=== PATIENT | male | born 1940 | race Caucasian/White ===

== ENCOUNTER → 2021-08-22 | Outpatient (CLI) | payer MEDICARE, BC ==
--- NOTE | 2021-08-22 16:01 | XR ---
EXAMINATION TYPE: XR knee complete 3 views RT, XR Hip Bilateral 2 views each side Complete DATE OF EXAM: 08/22/2021 COMPARISON: NONE HISTORY: 80-year-old male [id number] FINDINGS: Right knee: Mild anterior soft tissue swelling. Minimal marginal spurring at the patellofemoral compartment and m ore mild to moderate at the medial and lateral compartments. There appears to be underlying subchondr al bony irregularity along the lateral femoral condyle articular surface. Meniscal chondrocalcinosis. Bilateral hips: Mild marginal spurring of both hips. Degenerative disc disease lower lumbar spine. Pelvic phlebolith. No acute fracture, subluxation, or dislocation. IMPRESSION: 1. Right knee: Prominent irregularity of the articular bone of the lateral femoral condyle. A posttra umatic etiology or subchondral insufficiency fracture are not excluded at this time. Recommend MRI fo r further evaluation. At least mild tricompartmental osteoarthrosis. 2. Bilateral hips: Mild degenerative spurring at the hips. Degenerative disc disease L5-S1. No acute osseous abnormality seen.
== END | disposition home or self-care (01) ==
LOC: RADXRMAIN 12:42
PROVIDERS: ATTEND Pediatrics
DX: M25.752 Osteophyte, left hip (principal); M25.751 Osteophyte, right hip; M17.11 Unilateral primary osteoarthritis, right knee; M51.37 Other intervertebral disc degeneration, lumbosacral region
CPT/HCPCS: 73521

== ENCOUNTER → 2022-02-07 | Outpatient (CLI) | payer MEDICARE, BC ==
--- NOTE | 2022-02-08 07:51 | XR ---
EXAMINATION TYPE: XR ribs bilateral, XR chest 2V DATE OF EXAM: 02/07/2022 5:54 PM INDICATION: Patient age:Male; 81 years old; Reason for study: J18.9,W19.XXXA; COMPARISON: Chest radiograph same day TECHNIQUE: Frontal and oblique views of the bilateral ribs with frontal chest radiograph. Frontal and lateral views of the chest. FINDINGS: The ribs have a normal appearance. No evidence of fracture. Overall, the lungs are clear. The cardiac silhouette is normal in size. The remaining osseous structures are intact. Lungs/Pleura: There is no evidence of pleural effusion, focal consolidation, or pneumothorax. Pulmonary vascularity: Unremarkable. Heart/mediastinum: Cardiomediastinal silhouette is unremarkable. Musculoskeletal: Degenerative changes of the shoulder joints. IMPRESSION: No acute cardiopulmonary disease/process. No acute osseous pathology.
== END | disposition home or self-care (01) ==
LOC: RADXRMAIN 17:20
PROVIDERS: ATTEND Pediatrics
DX: J18.9 Pneumonia, unspecified organism (principal); W19.XXXA Unspecified fall, initial encounter
CPT/HCPCS: 71046; 71110

== ENCOUNTER → 2023-09-21 | Outpatient (CLI) | payer MEDICARE, BC ==
--- NOTE | 2023-09-21 09:48 | XR ---
EXAMINATION TYPE: XR knee complete bilateral DATE OF EXAM: 09/21/2023 COMPARISON: None HISTORY: Bilateral knee pain TECHNIQUE: 3 view bilateral knees FINDINGS: Mild narrowing of the medial lateral compartment joint space of the left knee is present. N o acute fractures or dislocations evident. No joint effusion is evident. There is mild narrowing of the medial lateral compartment right knee. No acute fractures or dislocati ons evident. Some meniscal calcification may be present. No joint effusion is evident. IMPRESSION: 1. Mild osteoarthritic degenerative changes of the medial and lateral compartments bilateral knees. 2. Some calcification of menisci, greater on right, is present.
--- NOTE | 2023-09-21 09:53 | US ---
EXAMINATION TYPE: US abdomen complete DATE OF EXAM: 09/21/2023 COMPARISON: NONE CLINICAL INDICATION: Male, 82 years old with history of R10.9,R10.31,R10.32 UNSPECIFIED PAIN; abd drew n TECHNIQUE: Multiple sonographic images of the abdomen are obtained. 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 Left Kidney: several large mobile cysts, largest measures 10.9x11.0x8.5cm Upper IVC: wnl Abd Aorta: wnl exam limited by bowel gas . IMPRESSION: 1. Bilateral renal cysts. 2. Hepatomegaly
--- NOTE | 2023-09-21 09:54 | US ---
EXAMINATION TYPE: US groin BILAT DATE OF EXAM: 09/21/2023 COMPARISON: NONE CLINICAL INDICATION: Male, 82 years old with history of R10.9,R10.31,R10.32 UNSPECIFIED PAIN; bilat g roin pain rt > lt TECHNIQUE: several images taken at patients area of pain FINDINGS: there is a considerable amount of peristalsing bowel at patients area of pain on the right side. IMPRESSION: 1. Bilateral inguinal hernias containing peristalsing bowel at the time of the exam. Consider follow- up with CT pelvis.
== END | disposition home or self-care (01) ==
LOC: RADUSWWP 08:15
PROVIDERS: ATTEND Pediatrics
DX: M17.0 Bilateral primary osteoarthritis of knee (principal); M25.861 Other specified joint disorders, right knee; N28.1 Cyst of kidney, acquired; R16.0 Hepatomegaly, not elsewhere classified; K40.20 Bilateral inguinal hernia, without obstruction or gangrene, not specified as recurrent
CPT/HCPCS: 76700; 76882

== ENCOUNTER 2024-05-04 15:44 | Inpatient (IN) | payer MEDICARE, BC ==
--- NOTE | 2024-05-04 16:13 | ED ---
General Adult HPI - General Chief complaint: Altered Mental Status Stated complaint: ams/fever Time Seen by Provider: 05/04/24 15:45 Source: EMS Mode of arrival: EMS - History of Present Illness Initial comments: Patient is an 83-year-old male presenting today as a transfer [facility] for altered mental status and fever. History provided by chart review and discussion with patient's daughter. Patient was reportedly sent from his assisted living facility today to [facility] for fever 102 degrees. Upon arrival to [facility] a chest x-ray, urinalysis and basic labs are obtained. Urine showed no signs of infection, viral panel was negative and chest x-ray was clear. Patient was given cefepime and vancomycin and transferred here for infectious disease consult. Patient's daughter states that the patient was admitted approximately 1 week ago for similar issue and was thought to have urine tract infection however this was never confirmed on urinalysis. Ultimately he improved and was discharged home on Levaquin which he completed yesterday. Patient is usually oriented x 2 and conversant. Patient's daughter states he is much more agitated and confused than normal. - Related Data Home Medications Medication Instructions Recorded Confirmed Acetaminophen Tab [Tylenol] 650 mg PO Q4H PRN 05/04/24 05/04/24 Aspirin 81 mg PO DAILY@79905/04/24 05/04/24 Atorvastatin [Lipitor] 20 mg PO HS@199905/04/24 05/04/24 Docusate [Colace] 100 mg PO BID@08,199905/04/24 05/04/24 Donepezil [Aricept] 10 mg PO HS@199905/04/24 05/04/24 Famotidine [Pepcid] 20 mg PO DAILY@79905/04/24 05/04/24 Magnesium 250 mg PO W/BRKFST@79905/04/24 05/04/24 Memantine [Namenda] 10 mg PO BID@08,199905/04/24 05/04/24 Prevagen 1 tab PO DAILY@0800 05/04/24 05/04/24 Saline Nasal Gel [[place] Nasal Gel] 1 applic EA NOSTRIL HS@199905/04/24 05/04/24 Simethicone [Gas-X] 125 mg PO QID PRN 05/04/24 05/04/24 Systane Preservative Free 2 drops BOTH EYES Q2H PRN 05/04/24 05/04/24 Tamsulosin [Flomax] 0.4 mg PO DAILY@0800 05/04/24 05/04/24 cycloSPORINE 0.05% OPHTH SOLN 1 drop BOTH EYES BID@0800,2000 05/04/24 05/04/24 [Restasis] prednisoLONE ACETATE 1% OPHTH 1 drop LEFT EYE DAILY@0800 05/04/24 05/04/24 [Pred Forte 1%] Previous Rx's Medication Instructions Recorded Vancomycin HCl [Vancocin HCl] 250 mg PO QID 10 Days #40 cap 05/06/24 Allergies Allergy/AdvReac Type Severity Reaction Status Date / Time No Known Allergies Allergy Verified 05/04/24 16:51 Review of Systems ROS Statement: Those systems with pertinent positive or pertinent negative responses have been documented in the HPI. ROS Other: All systems not noted in ROS Statement are negative. Limitations: ROS unobtainable due to patients medical condition Past Medical History Past Medical History: Dementia, Hyperlipidemia Additional Past Medical History / Comment(s): CKD, bilateral hearing loss, mood disorder Past Surgical History: Unable to Obtain Smoking Status: Unknown if ever smoked Past Alcohol Use History: Unable to Obtain Past Drug Use History: Unable to Obtain General Exam - General Exam Comments Initial Comments: PE: CONSTITUTIONAL: No apparent distress, chronically ill-appearing, nontoxic SKIN: Warm, dry, no jaundice, hives or petechiae, no rashes EYES: Pupils are equally round, extraocular movements intact without nystagmus, clear conjunctiva, non-icteric sclera HENT: Normocephalic, atraumatic, moist mucus membranes, oropharynx clear without exudates NECK: , Full range of motion, normal appearance PULMONARY: Clear to auscultation without wheezes, rhonchi, or rales, normal excursion, no accessory muscle use and no stridor CARDIOVASCULAR: Regular rate, rhythm, normal S1 and S2. No appreciated murmurs, rubs or gallops. Strong radial pulses with intact distal perfusion. No lower extremity edema GASTROINTESTINAL: Soft, hyper active bowel sounds throughout, non-tender, non- distended, no palpable masses, no rebound or guarding. No hepatosplenomegaly MUSCULOSKELETAL: Extremities are atraumatic, have no gross deformity, no edema, redness, or swelling NEUROLOGIC:_a/o x 1, GCS 14, confused mentation, speech is clear, moves all extremities x 4 without motor or sensory deficit, no facial droop or other focal neuro deficits exam is limited as pt unable to cooperate with exam, does intermittently follow commands however quickly forgets what he is doing, appears to be reaching at things in the air that aren't there, negative Kernig's and brudzinski's signs, no neck stiffness PSYCHIATRIC:_normal mood and affect, thought process is confused, restless Course Vital Signs 05/04/24 05/04/24 05/04/24 15:46 18:33 22:06 Temperature 98.3 F 98.6 F 100.9 F H Pulse Rate 64 76 Pulse Rate [ 57 L Pulse Oximetery ] Respiratory 18 18 18 Rate Blood Pressure 144/53 113/71 Blood Pressure 139/58 [Left Arm] O2 Sat by Pulse 96 97 95 Oximetry Medical Decision Making - Medical Decision Making Was pt. sent in by a medical professional or institution ([facility], CHANNEL EXECUTIVE, urgent care, hospital, or custodial...) When possible be specific @Patient transferred from [facility] for fever without a source as well as altered mental status Did you speak to anyone other than the patient for history (EMS, parent, family, police, friend...)? What history was obtained from this source @ -No Did you review nursing and triage notes (agree or disagree)? Why? @ -I reviewed nursing and triage notes Were old charts reviewed (outside hosp., previous admission, EMS record, old EKG, old radiological studies, urgent care reports/EKG's, custodial records)? Report findings @ -Medical records reviewed I reviewed records from transferring facility, reports patient received cefepime and vancomycin there and was transferred for an infectious disease consult, patient's urinalysis there was normal and showed no signs of infection, chest x-ray did not show signs of infection either Differential Diagnosis (chest pain, altered mental status, abdominal pain women, abdominal pain men, vaginal bleeding, weakness, fever, dyspnea, syncope, headache, dizziness, GI bleed, back pain, seizure, CVA, palpatations, mental health, musculoskeletal)? @ -Differential Fever: Pneumonia, viral URI, endocarditis, myocarditis, pericarditis, sinusitis, peritonitis, appendicitis, cholecystitis diverticulitis, hepatitis, colitis, UTI, pyelonephritis, prostatitis, epididymitis, meningitis, encephalitis, pulmonary embolism, CVA, thyroid storm, pancreatitis, this is not meant to be an all-inclusive list. EKG interpreted by me (3pts min.). @ -As above X-rays interpreted by me (1pt min.). @ -None done CT interpreted by me (1pt min.). I personally reviewed CT brain, I see no evidence of hemorrhage, mass, abscess or other acute process. I agree with radiologist interpretation. I personally reviewed CT chest abdomen pelvis, I see no evidence of bowel obstruction, volvulus, free air or free fluid, no obvious consolidations in lungs; large left renal cysts. U/S interpreted by me (1pt. min.). @ -None done What testing was considered but not performed or refused? (CT, X-rays, U/S, labs)? Why? @ -LP was considered however risks and benefits of this was discussed with patient's daughter who at this time politely declined LP. Patient is also currently too restless to undergo LP and is high risk to undergo sedation in the emergency department What meds were considered but not given or refused? Why? @ -None Did you discuss the management of the patient with other professionals (professionals i.e. , PA, CHANNEL EXECUTIVE, lab, RT, psych nurse, social insurance analyst, lead quality control technician, teacher, property and supply officer, bottle caser)? Give summary Case was discussed with Dr. Mckeon, infectious disease, requested addition of IV acyclovir in addition to vanc and cefepime Was smoking cessation discussed for >3mins.? @ -No Was critical care preformed (if so, how long)? @ -No Were there social determinants of health that impacted care today? How? (Homelessness, low income, unemployed, alcoholism, drug addiction, transportation, low edu. Level, literacy, decrease access to med. care, usp, rehab)? @ -No Was there de-escalation of care discussed even if they declined (Discuss DNR or withdrawal of care, Hospice)? @ -No What co-morbidities impacted this encounter? (DM, HTN, Smoking, COPD, CAD, Cancer, CVA, ARF, Chemo, Hep., AIDS, mental health diagnosis, sleep apnea, morbid obesity)? @ -Dementia, hyperlipidemia Was patient admitted / discharged? Hospital course, mention meds given and route, prescriptions, significant lab abnormalities, going to OR and other pertinent info. @Admission-Patient is an 83-year-old male history of dementia presenting today as a transfer from [facility] for fever and altered mental status. Patient seen and assessed on arrival, visibly confused and restless is briefly redirectable. Daughter arrived at bedside provided further history. Given no source of infection, altered mental status I did discuss with patient's daughter considering lumbar puncture however at this time she politely declined. Will continue patient on broad-spectrum antibiotics, consult infectious disease and admit. Additionally patient did become somewhat agitated when being assisted by staff so small amount of Ativan and Seroquel ordered. CT brain will be obtained this was not obtained at [facility]. Will CT chest/ abdomen pelvis to assess for other sources of infection. Case was discussed with Dr. Lainez, who kindly accepts patient for admission. Of note, CT did comment on R. prox. humerus fracture, pt has no gross deformity, bruising or signs of injury here. Large renal cysts. No infectious process identified. Did note bilateral containing inguinal hernias, however patient has no abdominal tenderness to palpation. CT brain showed no acute process. Undiagnosed new problem with uncertain prognosis? @ -No Drug Therapy requiring intensive monitoring for toxicity (Heparin, Nitro, Insulin, Cardizem)? @ -No Were any procedures done? @ -No Diagnosis/symptom? @ -acute encephalopathy, fever of unknown origin Acute, or Chronic, or Acute on Chronic? acute Uncomplicated (without systemic symptoms) or Complicated (systemic symptoms)? complicated Side effects of treatment? @ -No Exacerbation, Progression, or Severe Exacerbation? @ -No Poses a threat to life or bodily function? How? (Chest pain, [place], [place], pneumonia, PE, COPD, DKA, ARF, appy, cholecystitis, CVA, Diverticulitis, Homicidal, Suicidal, threat to staff... and all critical care pts) Yes, if left untreated could progress to septic shock and - Lab Data Result diagrams: 05/06/24 03:47 05/06/24 03:47 Lab Results 05/04/24 05/04/24 05/04/24 Range/Units 16:08 16:35 16:35 WBC 13.9 H (3.8-10.6) k/uL RBC 4.41 (4.30-5.90) m/uL Hgb 13.2 (13.0-17.5) gm/dL Hct 40.8 (39.0-53.0) % MCV 92.6 (80.0-100.0) fL MCH 30.0 (25.0-35.0) pg MCHC 32.4 (31.0-37.0) g/dL RDW 13.2 (11.5-15.5) % Plt Count 156 (150-450) k/uL MPV 8.2 Neutrophils % 90 % Lymphocytes % 4 % Monocytes % 5 % Eosinophils % 0 % Basophils % 0 % Neutrophils # 12.5 H (1.3-7.7) k/uL Lymphocytes # 0.5 L (1.0-4.8) k/uL Monocytes # 0.7 (0-1.0) k/uL Eosinophils # 0.1 (0-0.7) k/uL Basophils # 0.0 (0-0.2) k/uL Sodium 136 L (137-145) mmol/L Potassium 3.8 (3.5-5.1) mmol/L Chloride 103 (98-107) mmol/L Carbon Dioxide 27 (22-30) mmol/L Anion Gap 6 mmol/L BUN 19 (9-20) mg/dL Creatinine 1.25 (0.66-1.25) mg/dL Est GFR (CKD-EPI)AfAm 61 (>60 ml/min/1.73 sqM) Est GFR (CKD-EPI)NonAf 53 (>60 ml/min/1.73 sqM) Glucose 116 H (74-99) mg/dL Calcium 8.6 (8.4-10.2) mg/dL Total Bilirubin 1.0 (0.2-1.3) mg/dL AST 25 (17-59) U/L ALT 16 (4-49) U/L Alkaline Phosphatase 73 (38-126) U/L Total Protein 5.8 L (6.3-8.2) g/dL Albumin 3.4 L (3.5-5.0) g/dL TSH 1.210 (0.465-4.680) mIU/L Urine Color Colorless Urine Appearance Clear (Clear) Urine pH 8.0 (5.0-8.0) Ur Specific Preston 1.024 (1.001-1.035) Urine Protein Trace H (Negative) Urine Glucose (UA) Negative (Negative) Urine Ketones Negative (Negative) Urine Blood Negative (Negative) Urine Nitrite Negative (Negative) Urine Bilirubin Negative (Negative) Urine Urobilinogen <2.0 (<2.0) mg/dL Ur Leukocyte Esterase Negative (Negative) CSF Tube Number CSF Volume CSF Appearance CSF Color CSF RBC (0-10) u/L CSF Tot Nucleated Cells (0-5) u/L CSF Crenated Cells % CSF Fresh RBCs % CSF Glucose (40-70) mg/dL CSF Total Protein (12-60) mg/dL Influenza Type A (PCR) (Not Detectd) Influenza Type B (PCR) (Not Detectd) RSV (PCR) (Not Detectd) SARS-CoV-2 (PCR) (Not Detectd) 05/04/24 05/05/24 05/05/24 Range/Units 16:35 05:55 12:45 WBC (3.8-10.6) k/uL RBC (4.30-5.90) m/uL Hgb (13.0-17.5) gm/dL Hct (39.0-53.0) % MCV (80.0-100.0) fL MCH (25.0-35.0) pg MCHC (31.0-37.0) g/dL RDW (11.5-15.5) % Plt Count (150-450) k/uL MPV Neutrophils % % Lymphocytes % % Monocytes % % Eosinophils % % Basophils % % Neutrophils # (1.3-7.7) k/uL Lymphocytes # (1.0-4.8) k/uL Monocytes # (0-1.0) k/uL Eosinophils # (0-0.7) k/uL Basophils # (0-0.2) k/uL Sodium 136 L (137-145) mmol/L Potassium 3.6 (3.5-5.1) mmol/L Chloride 105 (98-107) mmol/L Carbon Dioxide 23 (22-30) mmol/L Anion Gap 8 mmol/L BUN 20 (9-20) mg/dL Creatinine 1.34 H (0.66-1.25) mg/dL Est GFR (CKD-EPI)AfAm 56 (>60 ml/min/1.73 sqM) Est GFR (CKD-EPI)NonAf 49 (>60 ml/min/1.73 sqM) Glucose 102 H (74-99) mg/dL Calcium 7.8 L (8.4-10.2) mg/dL Total Bilirubin (0.2-1.3) mg/dL AST (17-59) U/L ALT (4-49) U/L Alkaline Phosphatase (38-126) U/L Total Protein (6.3-8.2) g/dL Albumin (3.5-5.0) g/dL TSH (0.465-4.680) mIU/L Urine Color Urine Appearance (Clear) Urine pH (5.0-8.0) Ur Specific Preston (1.001-1.035) Urine Protein (Negative) Urine Glucose (UA) (Negative) Urine Ketones (Negative) Urine Blood (Negative) Urine Nitrite (Negative) Urine Bilirubin (Negative) Urine Urobilinogen (<2.0) mg/dL Ur Leukocyte Esterase (Negative) CSF Tube Number 4 CSF Volume 4.0 CSF Appearance Clear CSF Color Colorless CSF RBC 16 H (0-10) u/L CSF Tot Nucleated Cells 0 (0-5) u/L CSF Crenated Cells 0 % CSF Fresh RBCs 100 % CSF Glucose 65 (40-70) mg/dL CSF Total Protein 79 H (12-60) mg/dL Influenza Type A (PCR) Not Detected (Not Detectd) Influenza Type B (PCR) Not Detected (Not Detectd) RSV (PCR) Not Detected (Not Detectd) SARS-CoV-2 (PCR) Not Detected (Not Detectd) Disposition Clinical Impression: Humerus fracture, Renal cyst, Fever of unknown origin, Acute encephalopathy Disposition: ADMITTED IP TO THIS HOSP Condition: Good
[2024-05-04] MEDS: SODIUM CHLORIDE 0.9% 1,000 ML IV STA (16:25)
[2024-05-04] MEDS: LORazepam 2 MG/ML INJ IV STA (16:25)
[2024-05-04 16:28] LABS: Appearance,Urine Clear (Clear); Bilirubin,Urine Negative (Negative); Blood,Urine Negative (Negative); Color,Urine Colorless; Glucose,Urine (UA) Negative (Negative); Ketones,Urine Negative (Negative); Leukocyte Esterase,Urine Negative (Negative); Nitrite,Urine Negative (Negative); Protein,Urine Trace (Negative); Specific Gravity,Urine 1.024 (1.001-1.035); Urobilinogen,Urine <2.0 mg/dL (<2.0)
[2024-05-04 16:41] LABS: Basophils % (A) 0 %; Eosinophils # (A) 0.1 k/uL (0-0.7); Eosinophils % (A) 0 %; HCT 40.8 % (39.0-53.0); HGB 13.2 gm/dL (13.0-17.5); Lymphocytes # (A) 0.5 k/uL (1.0-4.8); Lymphocytes % (A) 4 %; MCHC 32.4 g/dL (31.0-37.0); MCV 92.6 fL (80.0-100.0); Mean Platelet Volume 8.2; Monocytes # (A) 0.7 k/uL (0-1.0); Monocytes % (A) 5 %; Neutrophils # (A) 12.5 k/uL (1.3-7.7); Neutrophils % (A) 90 %; Platelet Count 156 k/uL (150-450); RBC 4.41 m/uL (4.30-5.90); RDW 13.2 % (11.5-15.5); WBC 13.9 k/uL (3.8-10.6)
[2024-05-04 17:01] LABS: ALT 16 U/L (4-49); AST 25 U/L (17-59); African American GFR (CKD) 61 (>60 ml/min/1.73 sqM); Albumin 3.4 g/dL (3.5-5.0); Alkaline Phosphatase 73 U/L (38-126); Anion Gap 6 mmol/L; Blood Urea Nitrogen 19 mg/dL (9-20); Calcium 8.6 mg/dL (8.4-10.2); Carbon Dioxide 27 mmol/L (22-30); Chloride 103 mmol/L (98-107); Glucose 116 mg/dL (74-99); Non-African American GFR(CKD) 53 (>60 ml/min/1.73 sqM); Potassium 3.8 mmol/L (3.5-5.1); Sodium 136 mmol/L (137-145); Total Protein 5.8 g/dL (6.3-8.2)
[2024-05-04] MEDS ORDERED: VANCOMYCIN IV PER PHARMACY 1 EACH MISC MISCELLANE PRN (17:04)
[2024-05-04] MEDS ORDERED: NALOXONE 0.4 MG/ML 1 ML VIAL IV PRN (17:06)
[2024-05-04 17:15] LABS: Influenza A Not Detected (Not Detectd); Influenza B Not Detected (Not Detectd); RSV Not Detected (Not Detectd)
--- NOTE | 2024-05-04 18:27 | CT ---
EXAMINATION TYPE: CT brain wo con DATE OF EXAM: 05/04/2024 COMPARISON: None. CLINICAL INDICATION: Male, 83 years old with history of AMS; PHH, Pt presents to ED due to fever and AMS. TECHNIQUE: CT scan of the head is performed without contrast. CT DLP: 1369 mGycm Automated exposure control for dose reduction was used. FINDINGS: There is no acute intracranial hemorrhage or midline shift identified. There is moderate diffuse ventricular and sulcal prominence consistent with diffuse age-related cerebral atrophy. Cava l variant is present. Craven-white matter differentiation fairly well maintained. There are small mucou s retention cysts or polyps in the inferior maxillary sinuses bilaterally. Surgical changes left lens is noted. Right-sided aphakia is seen. IMPRESSION: No acute intracranial hemorrhage or midline shift. There is moderate diffuse cerebral a trophy noted.. [facility], , 05/04/2024 6:25 PM
--- NOTE | 2024-05-04 18:37 | CT ---
EXAMINATION TYPE: CT ChestAbdPelvis wo con DATE OF EXAM: 05/04/2024 COMPARISON: NONE HISTORY: Pt presents to ED due to fever and AMS. CT DLP: 693.9 mGycm. Automated Exposure Control for Dose Reduction was Utilized. TECHNIQUE: CT scan of the thorax, abdomen and pelvis is performed without oral or IV contrast. FINDINGS: Within the limitations of noncontrast study, the following observations are made. Suboptim al study due to artifact from adjacent overlying bilateral upper extremities. LUNGS: Dependent opacity bilateral lower lungs favors atelectasis versus mild edema. No suspicious fo caitie consolidation. No pleural effusion or pneumothorax is seen. MEDIASTINUM: There are no greater than 1 cm hilar or mediastinal lymph nodes. No pericardial effusi on is seen. Mild cardiomegaly is present. Prominent pulmonary arteries raise concern for underlying pulmonary artery hypertension. LIVER/GB: No significant abnormality is appreciated. PANCREAS: No significant abnormality is seen. SPLEEN: No significant abnormality is seen. ADRENALS: No significant abnormality is seen. KIDNEYS: There are several large thin-walled cysts scattered throughout the left kidney with local ma ss effect. For reference is 10.8 x 10.4 cm simple appearing thin-walled cyst axial image 63. BOWEL: No abnormal small or large bowel dilatation. GENITAL ORGANS: Enlarged prostate consistent with BPH.. LYMPH NODES: No greater than 1cm abdominal or pelvic lymph nodes are appreciated. OSSEOUS STRUCTURES: Bilateral pars defect L5 level without spondylolisthesis.. A few slightly displac ed fracture through the proximal humeral diaphysis coronal image 67. Surgical change to the right uln a is partially imaged. OTHER: There are bowel-containing bilateral inguinal hernias. Right hernia has fluid prominent small bowel loop. Advise correlation if there is acute localized pain to this level. IMPRESSION: 1. Suboptimal study. No suspicious acute findings on noncontrast CT within the thoracic abdomen and p paola. 2. Note is made of bilateral bowel containing inguinal hernias and other findings as noted above. 3. Acute slightly displaced oblique fracture right proximal humeral diaphysis is noted. [facility], , 05/04/2024 6:34 PM
[2024-05-04] MEDS: SODIUM CHLORIDE 0.9% IV ONE (18:51)
[2024-05-04] MEDS: CEFEPIME 1 GM in SODIUM CHLORIDE 0.9% 50 ML IVPB STA (18:51)
[2024-05-04] MEDS: ACYCLOVIR SODIUM IV ONE (18:51)
[2024-05-04] MEDS: QUEtiapine 50 MG TAB PO STA (18:52)
[2024-05-04] MEDS: LORazepam 0.5 MG TAB PO PRN (20:12)
[2024-05-04] MEDS: FAMOTIDINE 20 MG TAB PO SCH (20:12)
[2024-05-04] MEDS: VANCOMYCIN 1,500 MG in SODIUM CHLORIDE 0.9% 500 ML 500 ML IVPB STA (20:14)
[2024-05-04] MEDS ORDERED: SIMETHICONE 80 MG CHEWABLE PO PRN (22:08)
[2024-05-04] MEDS: ACETAMINOPHEN TAB 500 MG TAB PO STA (23:02)
[2024-05-05] MEDS: CEFEPIME 2 GM in SODIUM CHLORIDE 0.9% 100 ML IVPB SCH ×2 (00:21→06:14)
[2024-05-05] MEDS: ACYCLOVIR SODIUM IV SCH (03:16)
[2024-05-05] MEDS: SODIUM CHLORIDE 0.9% IV SCH (03:16)
[2024-05-05] MEDS ORDERED: ACETAMINOPHEN TAB 325 MG TAB PO PRN (05:00)
[2024-05-05] MEDS: ACETAMINOPHEN SUPPOSITORY 650 MG SUPP RECTAL PRN (06:13)
[2024-05-05] MEDS: ACETAMINOPHEN IV (For NPO) 1,000 MG in EMPTY BAG 1 BAG IVPB ONE (06:35)
[2024-05-05 07:35] LABS: African American GFR (CKD) 56 (>60 ml/min/1.73 sqM); Anion Gap 8 mmol/L; Blood Urea Nitrogen 20 mg/dL (9-20); Calcium 7.8 mg/dL (8.4-10.2); Carbon Dioxide 23 mmol/L (22-30); Chloride 105 mmol/L (98-107); Glucose 102 mg/dL (74-99); Non-African American GFR(CKD) 49 (>60 ml/min/1.73 sqM); Potassium 3.6 mmol/L (3.5-5.1); Sodium 136 mmol/L (137-145)
[2024-05-05] MEDS: DOCUSATE 100 MG CAP PO SCH (08:13)
[2024-05-05] MEDS ORDERED: fentaNYL (PF) 50 MCG/ML 2 ML AMP ONE (12:31)
--- NOTE | 2024-05-05 12:54 | P.PCN ---
Description of Procedure: Preprocedure diagnosis. Mental status change. Postprocedure diagnosis. As above. Procedure done. Lumbar puncture and collection of cerebrospinal fluid. Anesthesia. Local infiltration with anesthetics. Continuous pulse ox, EKG, blood pressure and verbal communication was maintained with the patient. Blood loss. None. Indication. Discussed with the patient and his daughter the procedure, alternatives, complications which may include infection, nerve damage, paralysis, aggravation of the symptoms especially bleeding in the spine and posterior dural puncture headache with the patient. The patient understands and questions were answered. Anesthesia. IV sedation with fentanyl 100 mcg. In OR continuous pulse ox EKG blood pressure and verbal communication was maintained with the patient. Sedation start time 1231. End time 1241. Procedure note. After getting concentration in the procedure room in sitting position. Back prepped with chlorhexidine and draped in sterile fashion. After injecting 3 mL of 1% lidocaine subcutaneously, a 22-gauge spinal needle was introduced at L45 interspace. Positive CSF, negative blood, negative paresthesia. CSF color was clear. CSF pressure was not measured. CSF was collected in 4 supplied sterol containers in sequence. Spinal needle was taken out and bandage was applied. Disposition. Patient tolerated the procedure well. No complication. Advised patient to lay flat one-hour postprocedure. The rest of the day today try to lay flat as much as possible. Next 3 days drink lots of fluid especially caffeinated beverages, and avoid constipation cough and doing strenuous physical work. Discharged home in stable condition.
[2024-05-05] MEDS: prednisoLONE ACETATE 1% OPHTH DROPS 5 ML BTL LEFT EYE SCH (13:10)
[2024-05-05] MEDS: TAMSULOSIN 0.4 MG CAP.ER.24H PO SCH (13:30)
[2024-05-05] MEDS: MAGNESIUM OXIDE 400 MG TAB PO SCH (13:30)
[2024-05-05] MEDS: MEMANTINE 10 MG TAB PO SCH (13:30)
[2024-05-05 14:20] LABS: Glucose,CSF 65 mg/dL (40-70); Total Protein,CSF 79 mg/dL (12-60)
[2024-05-05] MEDS: VANCOMYCIN 1,500 MG in SODIUM CHLORIDE 0.9% 500 ML 500 ML IVPB SCH (14:25)
[2024-05-05] MEDS: cycloSPORINE 0.05% OPHTH 0.4 ML DROPERETTE BOTH EYES SCH (14:26)
[2024-05-05 14:28] LABS: Appearance,CSF Clear; CSF Tube Number 4; Nucleated Cells, CSF 0 u/L (0-5); Red Blood Cell,CSF 16 u/L (0-10)
[2024-05-05 14:29] LABS: Red Blood Cell, CSF Crenated 0 %; Red Blood Cell, CSF Fresh 100 %
--- NOTE | 2024-05-05 15:22 | P.CNNES ---
History of Present Illness Consult date: 05/05/24 Requesting physician: Lizbet López Reason for Consult: fever, ams History of Present Illness: This is an 83 year-old gentleman with history of dementia who presents to the emergency department on 05/04/2024 for fever and altered mental status. The daughter is at bedside who provides history. She stated he resides in assisted living facility and yesterday in the morning she was notified he was confused and had fever. She denied he had any recent travels outside [place]. She feels he seems better today compared to yesterday. She denies he had history of stroke. He has history of dementia for the past two years. He has old ptosis of left eye and poor vision at baseline. For his Dementia he follow-up Dr. Chanda flores's team. Some of the work-up during this hospital visit consisted of: Tmax of 102F wbc 13.9K and is neutrophilic. TSH: 1.210 Influenza A/B, RSV and SARS-CoV-2 PCR are not detected. I reviewed rest of the lab work-up. CT head: No acute intracranial hemorrhage or midline shift. I personally rev iewed CT head and agree with report. Review of Systems As per HPI. Past Medical History Past Medical History: Dementia, Hyperlipidemia Additional Past Medical History / Comment(s): CKD, bilateral hearing loss, mood disorder History of Any Multi-Drug Resistant Organisms: None Reported Past Surgical History: Unable to Obtain Past Anesthesia/Blood Transfusion Reactions: No Reported Reaction Smoking Status: Unknown if ever smoked Past Alcohol Use History: Unable to Obtain Past Drug Use History: Unable to Obtain Medications and Allergies Home Medications Medication Instructions Recorded Confirmed Type Acetaminophen Tab [Tylenol] 650 mg PO Q4H PRN 05/04/24 05/04/24 History Aspirin 81 mg PO DAILY@0800 05/04/24 05/04/24 History Atorvastatin [Lipitor] 20 mg PO HS@199905/04/24 05/04/24 History Docusate [Colace] 100 mg PO BID@05/04/24 05/04/24 History Donepezil [Aricept] 10 mg PO HS@199905/04/24 05/04/24 History Famotidine [Pepcid] 20 mg PO DAILY@0800 05/04/24 05/04/24 History Magnesium 250 mg PO W/BRKFST@0805/04/24 05/04/24 History Memantine [Namenda] 10 mg PO BID@799,199905/04/24 05/04/24 History Prevagen 1 tab PO DAILY@0800 05/04/24 05/04/24 History Saline Nasal Gel [[place] Nasal Gel] 1 applic EA NOSTRIL HS@199905/04/24 05/04/24 History Simethicone [Gas-X] 125 mg PO QID PRN 05/04/24 05/04/24 History Systane Preservative Free 2 drops BOTH EYES Q2H PRN 05/04/24 05/04/24 History Tamsulosin [Flomax] 0.4 mg PO DAILY@79905/04/24 05/04/24 History cycloSPORINE 0.05% OPHTH SOLN 1 drop BOTH EYES BID@799,199905/04/24 05/04/24 History [Restasis] prednisoLONE ACETATE 1% OPHTH 1 drop LEFT EYE DAILY@0805/04/24 05/04/24 History [Pred Forte 1%] Allergies Allergy/AdvReac Type Severity Reaction Status Date / Time No Known Allergies Allergy Verified 05/04/24 16:51 Physical Examination - Vital Signs Vital Signs: Vital Signs Temp Pulse Pulse Resp BP BP Pulse Ox 05/05/24 14:54 98.0 F 60 18 110/54 98 05/05/24 08:00 100.4 F H 66 17 105/34 97 05/05/24 06:32 102 F H 105/54 05/05/24 00:48 100.1 F H 74 15 105/49 93 L 05/04/24 22:45 100.2 F H 59 L 18 140/54 99 05/04/24 22:06 100.9 F H 57 L 18 139/58 95 05/04/24 18:33 98.6 F 76 18 113/71 97 05/04/24 15:46 98.3 F 64 18 144/53 96 Intake and Output 05/05/24 05/05/24 05/05/24 06:59 14:59 22:59 Other: Voiding Method Diaper Diaper # Voids 1 1 # Bowel Movements 1 2 General: Lying in bed and is not in acute distress. HENT: Supple neck. Neuro: Somewhat limited because of confusion and very hard of hearing and does not have hearing aids. The patient is drowsy but is awakeable to voice. He is oriented to self, place (per daughter that is baseline). Is following simple commands (thumbs up, lifting arms and legs). Right pupil is 2-3mm is round and reactive to light while left is limited since has old ptosis. Unable to assess visual salgado or EOM. No facial weakness. No dysarthria from limited language. Motor: Strength is hard to assess individual muscle strength but is lifting uppers and lowers above gravity equally. Plantars: Mute bilaterally. Results - Laboratory Findings CBC and BMP: 05/04/24 16:35 05/05/24 05:55 Abnormal Lab Findings: Abnormal Labs 05/04/24 05/04/24 05/04/24 16:08 16:35 16:35 WBC 13.9 H Neutrophils # 12.5 H Lymphocytes # 0.5 L Sodium 136 L Creatinine Glucose 116 H Calcium Total Protein 5.8 L Albumin 3.4 L Urine Protein Trace H CSF RBC CSF Total Protein 05/05/24 05/05/24 05:55 12:45 WBC Neutrophils # Lymphocytes # Sodium 136 L Creatinine 1.34 H Glucose 102 H Calcium 7.8 L Total Protein Albumin Urine Protein CSF RBC 16 H CSF Total Protein 79 H Assessment and Plan Assessment: This is an 83 y/o gentleman with fever and AMS. Fever and confusion of unknown etiology. Rule out meningoencephalitis but today he seems better and neck is supple. Underlying Dementia for the past two years that is progressive Ptosis of the left eyes with poor vision at baseline Severe hard of hearing Plan: I consult pain specialist for lumbar puncture. Patient is on Acylovir, Cefepime and Vancomycin started by ED team. Will defer modification of medication to I.D. team. I ordered MRI Brain and MRA head. Patient is resume home medication of Aricept and Namenda. Will defer the rest of medical management to primary team and other specialist. The plan is discussed with patient's daughter and nurse. Thank you for the consultation. Time with Patient: Greater than 30
[2024-05-05] MEDS: ATORVASTATIN 20 MG TAB PO SCH (20:06)
[2024-05-05] MEDS: DONEPEZIL 10 MG TAB PO SCH (20:07)
[2024-05-05] MEDS: FAMOTIDINE 20 MG TAB PO SCH (20:07)
[2024-05-05] MEDS: SALINE NASAL GEL 14.1 GM TUBE NASAL SCH (20:07)
[2024-05-05] MEDS ORDERED: SODIUM CHLORIDE 0.9% IV SCH (22:00)
[2024-05-05] MEDS ORDERED: ACYCLOVIR SODIUM IV SCH (22:00)
--- NOTE | 2024-05-06 07:01 | P.CONS ---
History of Present Illness - Reason for Consult Consult date: 05/05/24 Fever, AMS Requesting physician: Dk E Sheet - Chief Complaint Fever and mental status changes x 1 day - History of Present Illness Patient is a 83-year-old male with a past medical history significant for dementia hyperlipidemia resident of assisted living facility was sent to the [facility] for evaluation of mental status changes and fever patient i nitial workup was negative patient received a dose of cefepime and vancomycin subsequently has been transferred to [facility] for further evaluation patient on initial presentation the hospital was afebrile subsequently spiked a temperature of 100.8 F and a temperature 100.4 this morning patient was not significantly tachycardic hypotensive or hypoxic no need for supplemental oxygen he did have a white count of 13.4 with a left shift creatinine was normal electrolytes normal liver enzymes normal urine was negative influenza RSV COVID testing negative patient did have CT of the chest abdomen pelvis to management acute abnormality patient was started on vancomycin and cefepime acyclovir was added empirically covering for encephalitis pending evaluation at the time my evaluation patient is sleepy but arousable per the daughter at the bedside he is feeling more agitated and combative no clear history of any nausea vomiting choking with food abdominal pain or diarrhea has been reported Review of Systems Positive points has been mentioned in HPI complete review could not be obtained because of his underlying mental status Past Medical History Past Medical History: Dementia, Hyperlipidemia Additional Past Medical History / Comment(s): CKD, bilateral hearing loss, mood disorder History of Any Multi-Drug Resistant Organisms: None Reported Past Surgical History: Unable to Obtain Past Anesthesia/Blood Transfusion Reactions: No Reported Reaction Smoking Status: Unknown if ever smoked Past Alcohol Use History: Unable to Obtain Past Drug Use History: Unable to Obtain Medications and Allergies Home Medications Medication Instructions Recorded Confirmed Type Acetaminophen Tab [Tylenol] 650 mg PO Q4H PRN 05/04/24 05/04/24 History Aspirin 81 mg PO DAILY@0800 05/04/24 05/04/24 History Atorvastatin [Lipitor] 20 mg PO HS@199905/04/24 05/04/24 History Docusate [Colace] 100 mg PO BID@0800,199905/04/24 05/04/24 History Donepezil [Aricept] 10 mg PO HS@199905/04/24 05/04/24 History Famotidine [Pepcid] 20 mg PO DAILY@0805/04/24 05/04/24 History Magnesium 250 mg PO W/BRKFST@79905/04/24 05/04/24 History Memantine [Namenda] 10 mg PO BID@799,199905/04/24 05/04/24 History Prevagen 1 tab PO DAILY@0805/04/24 05/04/24 History Saline Nasal Gel [[place] Nasal Gel] 1 applic EA NOSTRIL HS@199905/04/24 05/04/24 History Simethicone [Gas-X] 125 mg PO QID PRN 05/04/24 05/04/24 History Systane Preservative Free 2 drops BOTH EYES Q2H PRN 05/04/24 05/04/24 History Tamsulosin [Flomax] 0.4 mg PO DAILY@79905/04/24 05/04/24 History cycloSPORINE 0.05% OPHTH SOLN 1 drop BOTH EYES BID@05/04/24 05/04/24 History [Restasis] prednisoLONE ACETATE 1% OPHTH 1 drop LEFT EYE DAILY@0805/04/24 05/04/24 History [Pred Forte 1%] Vancomycin HCl [Vancocin HCl] 250 mg PO QID 10 Days #40 cap 05/06/24 Rx Allergies Allergy/AdvReac Type Severity Reaction Status Date / Time No Known Allergies Allergy Verified 05/04/24 16:51 Physical Exam Vitals: Vital Signs Temp Pulse Pulse Resp BP BP Pulse Ox 05/05/24 08:00 100.4 F H 66 17 105/34 97 05/05/24 06:32 102 F H 105/54 05/05/24 00:48 100.1 F H 74 15 105/49 93 L 05/04/24 22:45 100.2 F H 59 L 18 140/54 99 05/04/24 22:06 100.9 F H 57 L 18 139/58 95 05/04/24 18:33 98.6 F 76 18 113/71 97 05/04/24 15:46 98.3 F 64 18 144/53 96 Intake and Output 05/04/24 05/05/24 05/05/24 22:59 06:59 14:59 Other: Voiding Method Diaper Diaper # Voids 1 # Bowel Movements 1 Weight 77.111 kg GENERAL DESCRIPTION: An elderly male lying in bed, no distress. No tachypnea or accessory muscle of respiration use. HEENT: Shows Pallor , no scleral icterus. Oral mucous membrane is dry. NECK: Trachea central, no thyromegaly. LUNGS: Unlabored breathing. Clear to auscultation anteriorly. No wheeze or crackle. HEART: S1, S2, regular rate and rhythm. No loud murmur ABDOMEN: Soft, no tenderness , EXTREMITIES: No edema of feet. SKIN: No rash, no masses palpable. NEUROLOGICAL: The patient is lethargic but arousable orientation could not be determined no neck rigidity Results CBC & Chem 7: 05/06/24 03:47 05/06/24 03:47 Labs: Abnormal Lab Results - Last 24 Hours (Table) 05/04/24 05/04/24 05/04/24 Range/Units 16:08 16:35 16:35 WBC 13.9 H (3.8-10.6) k/uL Neutrophils # 12.5 H (1.3-7.7) k/uL Lymphocytes # 0.5 L (1.0-4.8) k/uL Sodium 136 L (137-145) mmol/L Creatinine (0.66-1.25) mg/dL Glucose 116 H (74-99) mg/dL Calcium (8.4-10.2) mg/dL Total Protein 5.8 L (6.3-8.2) g/dL Albumin 3.4 L (3.5-5.0) g/dL Urine Protein Trace H (Negative) 05/05/24 Range/Units 05:55 WBC (3.8-10.6) k/uL Neutrophils # (1.3-7.7) k/uL Lymphocytes # (1.0-4.8) k/uL Sodium 136 L (137-145) mmol/L Creatinine 1.34 H (0.66-1.25) mg/dL Glucose 102 H (74-99) mg/dL Calcium 7.8 L (8.4-10.2) mg/dL Total Protein (6.3-8.2) g/dL Albumin (3.5-5.0) g/dL Urine Protein (Negative) Assessment and Plan (1) Acute encephalopathy Status: Acute Code(s): G93.40 - ENCEPHALOPATHY, UNSPECIFIED SNOMED Code(s): 69111916 (2) Fever of unknown origin Status: Acute Code(s): R50.9 - FEVER, UNSPECIFIED SNOMED Code(s): 6085574 (3) Sepsis Status: Acute Code(s): A41.9 - SEPSIS, UNSPECIFIED ORGANISM SNOMED Code(s): 08048693 Plan: 1-Patient is presenting the hospital with sepsis in this patient who did have fever elevated white count with a source questionably encephalitis with significant mental status changes initial workup has been negative including a negative UA CT chest abdominal pelvis did not show any evidence of pneumonia colitis or abscess, patient benefit from LP this was explained detail with the daughter at the bedside 2-for now we will empirically covered with vancomycin and cefepime acyclovir w hile awaiting further workup to be completed Question concern answered We will follow on clinical condition and cultures to further adjust medication if needed Thank you for this consultation we will follow the patient along with you Dictation was produced using [employer] dictation software. please excuse any grammatical, word or spelling errors. Time with Patient: Greater than 30
[2024-05-06] MEDS: VANCOMYCIN 125 MG CAPSULE PO SCH (08:22)
[2024-05-06 08:36] LABS: Basophils # (A) 0.05 X 10*3/uL (0.00-0.10); Basophils % (A) 0.6 %; Eosinophils # (A) 0.18 X 10*3/uL (0.04-0.35); HCT 38.6 % (39.6-50.0); HGB 12.3 g/dL (13.0-17.0); Lymphocytes # (A) 0.69 X 10*3/uL (0.90-5.00); Lymphocytes % (A) 7.7 %; MCH 30.6 pg (27.0-32.0); MCHC 31.9 g/dL (32.0-37.0); Mean Platelet Volume 11.7 FL (9.5-12.2); Monocytes # (A) 0.76 X 10*3/uL (0.20-1.00); Monocytes % (A) 8.4 %; NRBC Per 100 WBC 0 X 10*3/uL (0.00-0.01); Platelet Count 120 X 10*3/uL (140-440); RBC 4.02 X 10*6/uL (4.40-5.60); WBC 9.01 X 10*3/uL (4.50-10.00)
[2024-05-06 08:54] LABS: ALT 16 U/L (10-49); AST 31 U/L (14-35); Albumin 2.7 g/dL (3.8-4.9); Alkaline Phosphatase 60 U/L (41-126); Blood Urea Nitrogen 20.3 mg/dL (9.0-27.0); Calcium 7.6 mg/dL (8.7-10.3); Carbon Dioxide 21.6 mmol/L (21.6-31.8); Chloride 111 mmol/L (96-109); Globulin 1.8 g/dL (1.6-3.3); Glucose 88 mg/dL (70-110); Magnesium 1.6 mg/dL (1.5-2.4); Potassium 3.9 mmol/L (3.5-5.5); Sodium 140 mmol/L (135-145); Total Bilirubin 0.4 mg/dL (0.3-1.2); Total Protein 4.5 g/dL (6.2-8.2)
--- NOTE | 2024-05-06 10:07 | P.HPIM ---
History of Present Illness H&P Date: 05/05/24 This is a pleasant 83-year-old male who presented to the emergency department after a transfer from [place] and patient lives in an [facility] in [place] and sees Dr. Puga outpatient. Patient was sent here for fevers of unknown origin and was recently hospitalized at [place] for the same thing and is altered and with an elevated white count of 13.9. Patient has a significant past medical history of dementia, hyperlipidemia, chronic kidney disease, bilateral hearing loss with mood disorder. Labs reviewed otherwise showing a sodium of 136 with potassium 3.8, creatinine 1.25, magnesium 1.6, procalcitonin 1.52, urinalysis was not obtained although may have at the other hospital. Will attempt another urinalysis and also try to obtain records from [facility] regarding previous workup. Preliminary blood cultures here thus far negative and patient will be undergoing an LP this morning. MRI is ordered and pending per neurology. Brain CT was negative for any acute intracranial hemorrhage or midline shift there is a moderate diffuse cerebral atrophy noted, chest abdomen pelvis was also obtained here showing a suboptimal study with no suspicious acute findings on thoracic abdomen and pelvis bilateral bowel containing inguinal hernias and acutely displaced oblique fracture of the right proximal humeral diaphysis is noted. Patient was admitted with altered mental status with neurology and infectious disease on consult. REVIEW OF SYSTEMS: Unable to completely assess as patient is confused and lethargic CONSTITUTIONAL: Reports fever, no malaise, reports fatigue. HEENT: No recent visual problems or hearing problems. Denied any sore throat. CARDIOVASCULAR: No chest pain, orthopnea, PND, no palpitations, no syncope. PULMONARY: No shortness of breath, no cough, no hemoptysis. GASTROINTESTINAL: Reports 3 episodes of diarrhea this morning, no nausea, no vomiting, no abdominal pain. Not much of an appetite NEUROLOGICAL: No headaches, no weakness, no numbness. HEMATOLOGICAL: Denies any bleeding or petechiae. GENITOURINARY: Denies any burning micturition, frequency, or urgency. MUSCULOSKELETAL/RHEUMATOLOGICAL: Denies any joint pain, swelling, or any muscle pain. ENDOCRINE: Denies any polyuria or polydipsia. The rest of the 14-point review of systems is negative. PHYSICAL EXAMINATION: GENERAL: The patient is alert and oriented x1-2, Well developed, thin built, elderly appearing HEENT: Pupils are round and equally reacting to light. EOMI. No scleral icterus. No conjunctival pallor. Normocephalic, atraumatic. No pharyngeal erythema. No thyromegaly. CARDIOVASCULAR: S1 and S2 present. No murmurs, rubs, or gallops. PULMONARY: Chest is clear to auscultation, no wheezing or crackles. ABDOMEN: Soft, thin, nontender, nondistended, normoactive bowel sounds. No palpable organomegaly. MUSCULOSKELETAL: No joint swelling or deformity. EXTREMITIES: No cyanosis, clubbing, or pedal edema. NEUROLOGICAL: Gross neurological examination did not reveal any focal deficits. Diffusely weak SKIN: No rashes. Assessment: Altered mental status with fevers and elevated white count, with sepsis, present on admission, unknown etiology Acute metabolic encephalopathy secondary to fevers and sepsis History of dementia History of hyperlipidemia Chronic kidney disease history Bilateral hearing loss Hypomagnesemia Diarrhea, rule out C. difficile GI prophylaxis DVT prophylaxis No code Plan: Patient was admitted from the hospital in [place] with altered mental status with concerns of sepsis with unknown etiology Patient was recently hospitalized at [place] per family for this previously and improved and was discharged back to his [facility] following and will be undergoing LP with interventional radiology or anesthesia and will await report, MRI was ordered although family is unsure if they want to proceed with this as it is not necessary Follow-up on blood cultures and septic workup, procalcitonin is elevated at 1.52 and per nursing staff blood cultures were positive cocci at the other hospital. Will repeat cultures and further cultures are pending at this time Recommend PT/OT therapy for evaluation Social work consult for discharge planning The impression and plan of care has been dictated by Nurse Marcelo Haq titioner as directed. Dr. Sylvia MD I have performed a history and examination and MDM of this patient, discussed the same with the dictator, and agree with the dictator's assessment and plan as written ,documented as a scribe. Based on total visit time, I have performed more than 50% of the visit. Past Medical History Past Medical History: Dementia, Hyperlipidemia Additional Past Medical History / Comment(s): CKD, bilateral hearing loss, mood disorder History of Any Multi-Drug Resistant Organisms: None Reported Past Surgical History: Unable to Obtain Past Anesthesia/Blood Transfusion Reactions: No Reported Reaction Smoking Status: Unknown if ever smoked Past Alcohol Use History: Unable to Obtain Past Drug Use History: Unable to Obtain Medications and Allergies Home Medications Medication Instructions Recorded Confirmed Type Acetaminophen Tab [Tylenol] 650 mg PO Q4H PRN 05/04/24 05/04/24 History Aspirin 81 mg PO DAILY@0800 05/04/24 05/04/24 History Atorvastatin [Lipitor] 20 mg PO HS@199905/04/24 05/04/24 History Docusate [Colace] 100 mg PO BID@08,199905/04/24 05/04/24 History Donepezil [Aricept] 10 mg PO HS@199905/04/24 05/04/24 History Famotidine [Pepcid] 20 mg PO DAILY@0805/04/24 05/04/24 History Magnesium 250 mg PO W/BRKFST@79905/04/24 05/04/24 History Memantine [Namenda] 10 mg PO BID@08,199905/04/24 05/04/24 History Prevagen 1 tab PO DAILY@0800 05/04/24 05/04/24 History Saline Nasal Gel [Thermal Nasal Gel] 1 applic EA NOSTRIL HS@199905/04/24 05/04/24 History Simethicone [Gas-X] 125 mg PO QID PRN 05/04/24 05/04/24 History Systane Preservative Free 2 drops BOTH EYES Q2H PRN 05/04/24 05/04/24 History Tamsulosin [Flomax] 0.4 mg PO DAILY@0805/04/24 05/04/24 History cycloSPORINE 0.05% OPHTH SOLN 1 drop BOTH EYES BID@08,199905/04/24 05/04/24 History [Restasis] prednisoLONE ACETATE 1% OPHTH 1 drop LEFT EYE DAILY@0800 05/04/24 05/04/24 Hi story [Pred Forte 1%] Allergies Allergy/AdvReac Type Severity Reaction Status Date / Time No Known Allergies Allergy Verified 05/04/24 16:51 Physical Exam Vitals: Vital Signs Temp Pulse Pulse Resp BP BP Pulse Ox 05/05/24 08:00 100.4 F H 66 17 105/34 97 05/05/24 06:32 102 F H 105/54 05/05/24 00:48 100.1 F H 74 15 105/49 93 L 05/04/24 22:45 100.2 F H 59 L 18 140/54 99 05/04/24 22:06 100.9 F H 57 L 18 139/58 95 05/04/24 18:33 98.6 F 76 18 113/71 97 05/04/24 15:46 98.3 F 64 18 144/53 96 Intake and Output 05/04/24 05/05/24 05/05/24 22:59 06:59 14:59 Other: Voiding Method Diaper Diaper # Voids 1 # Bowel Movements 1 Weight 77.111 kg Results CBC & Chem 7: 05/06/24 03:47 05/06/24 03:47 Labs: Abnormal Lab Results - Last 24 Hours (Table) 05/04/24 05/04/24 05/04/24 Range/Units 16:08 16:35 16:35 WBC 13.9 H (3.8-10.6) k/uL Neutrophils # 12.5 H (1.3-7.7) k/uL Lymphocytes # 0.5 L (1.0-4.8) k/uL Sodium 136 L (137-145) mmol/L Creatinine (0.66-1.25) mg/dL Glucose 116 H (74-99) mg/dL Calcium (8.4-10.2) mg/dL Total Protein 5.8 L (6.3-8.2) g/dL Albumin 3.4 L (3.5-5.0) g/dL Urine Protein Trace H (Negative) 05/05/24 Range/Units 05:55 WBC (3.8-10.6) k/uL Neutrophils # (1.3-7.7) k/uL Lymphocytes # (1.0-4.8) k/uL Sodium 136 L (137-145) mmol/L Creatinine 1.34 H (0.66-1.25) mg/dL Glucose 102 H (74-99) mg/dL Calcium 7.8 L (8.4-10.2) mg/dL Total Protein (6.3-8.2) g/dL Albumin (3.5-5.0) g/dL Urine Protein (Negative) Thrombosis Risk Factor Assmnt - Choose All That Apply Any of the Below Risk Factors Present?: Yes Other Risk Factors: Yes Each Risk Factor Represents 3 Points: Age 75 years or older Other congenital or acquired thrombophilia - If yes, enter type in comment: No Thrombosis Risk Factor Assessment Total Risk Factor Score: 3 Thrombosis Risk Factor Assessment Level: Moderate Risk
[2024-05-06 13:39] VITALS: BP 173/78; PULSE 51; RESP 22; TEMP 98.2
--- NOTE | 2024-05-06 15:25 | P.PN ---
Subjective Progress Note Date: 05/06/24 Principal diagnosis: Reason for follow-up is C. difficile colitis Patient is a 83-year-old male with a past medical history significant for dementia hyperlipidemia resident of assisted living facility was sent to the [facility] for evaluation of mental status changes and fever patient did have extensive workup including CT chest abdominal pelvis as well as LP those are negative subsequent stool for C. difficile came back positive and the patient was started on vancomycin this morning. On today's evaluation that is 05/06/2024, the patient continues to be afebrile, the patient is on room air and breathing comfortably, the Pt daughter at the bedside mention no bowel movement today no vomiting and mention mentation conteh he has improved as well and want to take him back to his assisted living facility. Patient white count normalized to 9.01, creatinine is 1.4 blood cultures so far negative Objective - Vital Signs Vital signs: Vital Signs Temp 97.5 F L 05/06/24 07:53 Pulse 52 L 05/06/24 07:53 Resp 15 05/06/24 07:53 BP 151/63 05/06/24 07:53 Pulse Ox 99 05/06/24 07:53 FiO2 Intake & Output 05/05/24 05/06/24 05/06/24 18:59 06:59 18:59 Other: Voiding Method Diaper Diaper Diaper # Voids 1 2 1 # Bowel Movements 1 1 1 - Exam GENERAL DESCRIPTION: An elderly male up in the chair in no distress RESPIRATORY SYSTEM: Unlabored breathing , Sleepy orientation could not determine - Labs CBC & Chem 7: 05/06/24 03:47 05/06/24 03:47 Labs: Abnormal Lab Results - Last 24 Hours (Table) 05/05/24 05/05/24 05/06/24 Range/Units 12:45 21:00 03:47 RBC 4.02 L (4.40-5.60) X 10*6/uL Hgb 12.3 L (13.0-17.0) g/dL Hct 38.6 L (39.6-50.0) % MCHC 31.9 L (32.0-37.0) g/dL Plt Count 120 L (140-440) X 10*3/uL Lymphocytes # 0.69 L (0.90-5.00) X 10*3/uL Chloride (96-109) mmol/L Est GFR (CKD-EPI) (>=60) Calcium (8.7-10.3) mg/dL Total Protein (6.2-8.2) g/dL Albumin (3.8-4.9) g/dL Albumin/Globulin Ratio (1.60-3.17) Ratio Procalcitonin (0.02-0.50) ng/mL CSF RBC 16 H (0-10) u/L CSF Total Protein 79 H (12-60) mg/dL C. difficile (EIA) Intrp Positive A (Negative) 05/06/24 05/06/24 Range/Units 03:47 03:47 RBC (4.40-5.60) X 10*6/uL Hgb (13.0-17.0) g/dL Hct (39.6-50.0) % MCHC (32.0-37.0) g/dL Plt Count (140-440) X 10*3/uL Lymphocytes # (0.90-5.00) X 10*3/uL Chloride 111 H (96-109) mmol/L Est GFR (CKD-EPI) 50 L (>=60) Calcium 7.6 L (8.7-10.3) mg/dL Total Protein 4.5 L (6.2-8.2) g/dL Albumin 2.7 L (3.8-4.9) g/dL Albumin/Globulin Ratio 1.50 L (1.60-3.17) Ratio Procalcitonin 1.52 H (0.02-0.50) ng/mL CSF RBC (0-10) u/L CSF Total Protein (12-60) mg/dL C. difficile (EIA) Intrp (Negative) Microbiology - Last 24 Hours (Table) 05/04/24 18:29 Nasal Screen MRSA/MSSA - Final Nasal Swab 05/05/24 12:45 CSF Gram Stain - Preliminary Cerebral Spinal Fluid 05/04/24 17:58 Blood Culture - Preliminary Blood Assessment and Plan (1) Acute encephalopathy Status: Acute Code(s): G93.40 - ENCEPHALOPATHY, UNSPECIFIED SNOMED Code(s): 39889050 (2) Fever of unknown origin Status: Acute Code(s): R50.9 - FEVER, UNSPECIFIED SNOMED Code(s): 3675843 (3) Sepsis Status: Acute Code(s): A41.9 - SEPSIS, UNSPECIFIED ORGANISM SNOMED Code(s): 65838439 Plan: 1-Patient is presenting the hospital with sepsis in this patient who did have fever elevated white count with a source questionably encephalitis with significant mental status changes initial workup has been negative including a negative UA CT chest abdominal pelvis did not show any evidence of pneumonia col itis or abscess, patient benefit from LP this was explained detail with the daughter at the bedside 2patient did have LP that was not suggestive of meningitis or encephalitis 3stool for C. difficile is positive patient was started on oral vancomycin is being his first episode recommending a 10-day course discussed with [employer] for admitting team Daughter at the bedside question answered Dictation was produced using [employer] dictation software. please excuse any grammatical, word or spelling errors. Time with Patient: Less than 30
--- NOTE | 2024-05-06 15:34 | P.PN ---
Subjective Progress Note Date: 05/06/24 I am following-up with patient and per the daughter who is at bedside she feels he is better today compared to yesterday. He had lumbar puncture yesterday and was negative for meningoencephalitis. He was found to have positive C.Diff. The daughter did not want to pursue with MRI Brain. Objective - Vital Signs Vital signs: Vital Signs Temp 98.2 F 05/06/24 13:38 Pulse 51 L 05/06/24 13:38 Resp 22 05/06/24 13:38 BP 173/78 05/06/24 13:38 Pulse Ox 100 05/06/24 13:38 FiO2 Intake & Output 05/05/24 05/06/24 05/06/24 18:59 06:59 18:59 Intake Total 236 Balance 236 Intake: Oral 236 Other: Voiding Method Diaper Diaper Diaper # Voids 1 2 1 # Bowel Movements 1 1 1 - Exam General: Sitting in a recliner chair and is not in acute distress. Neuro: Somewhat limited The patient is drowsy but is awakeable to voice. He is oriented to self, place (per daughter that is baseline). Is following simple commands. He named his daughter his but called her by her correct name. Right pupil is 2-3mm is round and reactive to light while left is limited since has old ptosis. Unable to assess visual salgado or EOM. No facial weakness. No dysarthria from limited language. Motor: Strength is hard to assess individual muscle strength but is lifting uppers and lowers above gravity equally. Plantars: Mute bilaterally. Some of the work-up during this hospital visit consisted of: Tmax of 102F wbc 13.9K and is neutrophilic. TSH: 1.210 Influenza A/B, RSV and SARS-CoV-2 PCR are not detected. I reviewed rest of the lab work-up. CT head: No acute intracranial hemorrhage or midline shift. I personally reviewed CT head and agree with report. CSF study: Clear, colorless, rbc 16, nucelated cells 0, glucose 65, total protein 79. CSF culture: No organism seen. +ve C.Diff. - Labs CBC & Chem 7: 05/06/24 03:47 05/06/24 03:47 Labs: Abnormal Lab Results - Last 24 Hours (Table) 05/05/24 05/06/24 05/06/24 Range/Units 21:00 03:47 03:47 RBC 4.02 L (4.40-5.60) X 10*6/uL Hgb 12.3 L (13.0-17.0) g/dL Hct 38.6 L (39.6-50.0) % MCHC 31.9 L (32.0-37.0) g/dL Plt Count 120 L (140-440) X 10*3/uL Lymphocytes # 0.69 L (0.90-5.00) X 10*3/uL Chloride 111 H (96-109) mmol/L Est GFR (CKD-EPI) 50 L (>=60) Calcium 7.6 L (8.7-10.3) mg/dL Total Protein 4.5 L (6.2-8.2) g/dL Albumin 2.7 L (3.8-4.9) g/dL Albumin/Globulin Ratio 1.50 L (1.60-3.17) Ratio Procalcitonin (0.02-0.50) ng/mL C. difficile (EIA) Intrp Positive A (Negative) 05/06/24 Range/Units 03:47 RBC (4.40-5.60) X 10*6/uL Hgb (13.0-17.0) g/dL Hct (39.6-50.0) % MCHC (32.0-37.0) g/dL Plt Count (140-440) X 10*3/uL Lymphocytes # (0.90-5.00) X 10*3/uL Chloride (96-109) mmol/L Est GFR (CKD-EPI) (>=60) Calcium (8.7-10.3) mg/dL Total Protein (6.2-8.2) g/dL Albumin (3.8-4.9) g/dL Albumin/Globulin Ratio (1.60-3.17) Ratio Procalcitonin 1.52 H (0.02-0.50) ng/mL C. difficile (EIA) Intrp (Negative) Microbiology - Last 24 Hours (Table) 05/04/24 18:29 Nasal Screen MRSA/MSSA - Final Nasal Swab 05/05/24 12:45 CSF Gram Stain - Preliminary Cerebral Spinal Fluid 05/04/24 17:58 Blood Culture - Preliminary Blood Assessment and Plan Assessment: This is an 83 y/o gentleman with fever and AMS. Fever and confusion due to septic encephalopathy from underlying +ve C.Diff. CSF is unremarkable for meningoencephalitis (nucleated cells 0). Per daughter confusion is improving today. 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 I.D. team. Patient is resume home medication of Aricept and Namenda. Will defer the rest of medical management to primary team and other specialist. The plan is discussed with patient's daughter and nurse. There is no further neurological work-up. Will sign off. Please reconsult if needed. Time with Patient: Less than 30
== END 2024-05-06 15:00 | DRG 871 ==
LOC: EC 15:44 → 4SSUR 17:08 → 6NMEDSUR 19:51 → OBSVTOIN 05-05 13:47
PROVIDERS: ADMIT Internal Medicine; ATTEND Internal Medicine
PROC: 009U3ZX Drainage of Spinal Canal, Percutaneous Approach, Diagnostic (ICD-10-PCS; principal; 2024-05-05 11:00)
DX: A41.9 Sepsis, unspecified organism (principal); G93.41 Metabolic encephalopathy; A04.72 Enterocolitis due to Clostridium difficile, not specified as recurrent; F03.90 Unspecified dementia, unspecified severity, without behavioral disturbance, psychotic disturbance, mood disturbance, and anxiety; N18.9 Chronic kidney disease, unspecified; R65.20 Severe sepsis without septic shock; Z11.52 Encounter for screening for COVID-19; E78.5 Hyperlipidemia, unspecified; E83.42 Hypomagnesemia; H91.93 Unspecified hearing loss, bilateral; H54.7 Unspecified visual loss; N28.1 Cyst of kidney, acquired; Z79.82 Long term (current) use of aspirin; Z79.899 Other long term (current) drug therapy
CPT/HCPCS: 36415; 62270; 70450; 71250; 74176; 80048; 80053; 81003; 82945; 83735; 84145; 84157; 84443; 85025; 87040; 87070; 87205; 87324; 87636; 89050; 96361; 96365; 96366; 96367; 96375; 99285